=== PATIENT | male | born 1955 | race Hispanic/Latino ===

== ENCOUNTER 2018-01-04 08:57 | Emergency (ER) | payer OTHER ==
[~2018-01-04 08:57] MED LIST: ADRENALIN ONE
--- NOTE | 2018-01-04 10:08 | Emergency Department Report ---
ED CPR HPI - General Chief Complaint: Cardiac Arrest/CPR Stated Complaint: CARDIAC ARREST Source: EMS Mode of arrival: Stretcher Limitations: Other - History of Present Illness Initial Comments: This is a 62 year old man that was found ventricular fibrillation at work. Medics that he had collapsed approximately 5 minutes before their arrival. He was found in fine ventricular fibrillation. He was defibrillated times several. He was given epinephrine and repeat defibrillation 2 and soft. Medics intubated the patient. They stated that they had provided advanced life support for greater than 25 minutes. There was no return of spontaneous circulation. There was no signs of life at any time under medics care. Medics inform me that the patient had had a previous cardiac stent. Blood glucose was found to be near normal. MD Complaint: collapsed during rest -: minute(s) (5) Place: work AED Applied by Bystander/Home Care Associate: Yes Shock Advised: Yes Number of Shocks Delivered: 2 (I believe medics stated there were 2 AED shocks provided prior to their arrival as well) - Related Data Allergies Allergy/AdvReac Type Severity Reaction Status Date / Time Unable to Assess Allergy Unverified 01/04/18 09:18 ED Review of Systems ROS: Stated complaint: CARDIAC ARREST Other details as noted in HPI Comment: Unobtainable due to pts medical conditions ED Past Medical Hx - Past Medical History Additional medical history: Diabetes and percutaneous coronary intervention - Surgical History Additional Surgical History: unknown - Social History Smoking Status: Unknown if ever smoked Other Social History: Collapsed at work ED Physical Exam - General Limitations: Other (pale) General appearance: obese (morbidly) - Eye Pupils: Present: other (fixed and dilated) - ENT ENT exam: Present: other (ETT) - Neck Neck exam: Present: normal inspection - Respiratory Respiratory exam: Present: normal lung sounds bilaterally (present with BV ventilation) - Cardiovascular Cardiovascular Exam: Present: other (no heart sounds) - GI/Abdominal GI/Abdominal exam: Present: soft, distended - Extremities Exam Extremities exam: Present: other (without acute deformity) - Back Exam Back exam: Present: other (unable) - Neurological Exam Neurological exam: Present: other (GCS 3) - Skin Skin exam: Present: warm, pallor ED Course - Reevaluation(s) Reevaluation #1: The patient's presenting rhythm was fine ventricular fibrillation. He was stiffer related 1. The result was asystole. There are no signs of life. He had already exceeded 25 minutes of unsuccessful prehospital resuscitation with no return of spontaneous circulation. Further efforts were deemed futile. The patient was pronounced. The family was counseled. 01/04/18 10:16 Critical care attestation.: If time is entered above; I have spent that time in minutes in the direct care of this critically ill patient, excluding procedure time. ED Disposition Clinical Impression: Cardiac arrest Disposition: DC-20 Is pt being admited?: No Does the pt Need Aspirin: No Condition: Stable Referrals: PRIMARY CARE, [Primary Care Provider] - 3-5 Days Time of Disposition: 10:17
== END 2018-01-04 12:43 ==
LOC: ED 08:57
DX: I46.9 Cardiac arrest, cause unspecified (principal); E11.9 Type 2 diabetes mellitus without complications
CPT/HCPCS: 99285; J0171